=== PATIENT | female | born 2005 | race Hispanic/Latino ===

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

== ENCOUNTER 2025-02-03 23:06 | Emergency (ER) | payer SELFPAY ==
[2025-02-03 23:59] LABS: COVID-19 Antigen Negative (Negative)
[2025-02-04] MEDS: TYLENOL 1000 MG PO (01:30)
[2025-02-04] MEDS: TORADOL 30 MG IM (01:31)
[2025-02-04 01:41] LABS: HCG, Urine Qualitative Screen Negative
[2025-02-04 02:51] VITALS: BP 116/73
--- NOTE | 2025-02-04 03:36 | ED.GENMED ---
History of Present Illness
General
Chief Complaint: Cold/Flu/URI Symptoms
Source: patient
Exam Limitations: none
Time Seen by Provider: 02/04/25 01:01
Nursing documentation reviewed up to this point in time: agreed with
History of Present Illness
History of Present Illness:
20-year-old female presenting to the emergency department today with concerns of fever cough over the past few days. Some achiness and discomfort when coughing as well. No significant shortness of breath or persisting chest pain.
Review of Systems
Review of Systems
Allergies reviewed?: Yes
All Other Systems: ROS reviewed and negative except as documented in HPI and ROS
Phy Exam
Physical Exam
Physical Exam:
GENERAL: Alert , in no apparent distress
EYE: pupils equal and reactive
NECK: Supple, no significant adenopathy.
ENT: o/p clr, mmm.
CARDIAC: Regular rate and rhythm .
LUNGS: Clear breath sounds bilaterally, no acute respiratory distress, no wheezes/rales/rhonchi
ABDOMEN: Soft, without focal tenderness, no r/g, no cvat
NEUROLOGICAL: Alert and oriented, no focal neuro deficits
SKIN: Warm and dry, skin intact.
MUSCULOSKELETAL: No edema, well perfused.
PSYCH: Normal and appropriate interaction.
Sepsis
Sepsis Screening
Sepsis Assessment: Sepsis Ruled Out
Sepsis Screen
Sepsis Screen: Sepsis Ruled Out
Date: 02/04/25
Time: 03:41
Course
Orders/Labs/Results
Orders:
Orders
02/03/25 23:28
Influenza A+B Rapid Molecular Urgent
HERBER Source: Nasal Swab
Specimen Description:
02/03/25 23:29
COVID-19 Antigen Urgent
Source: Nasal Swab
02/04/25 01:02
Chest [CR Chest - 2 Views ] Urgent
Comment:
Reason For Exam: cough pain/fever
02/04/25 01:24
Acetaminophen [Tylenol] 1,000 mg PO NOW STA
Ketorolac [Toradol] 30 mg IM NOW STA
Test Result ONCE
02/04/25 01:29
Beta Hcg Urine Qualitative Screen [HCG, Urine Qualitative Screen] Urgent
Date Specimen was Collected: 02/04/25
Time Specimen was Collected: 01:26
02/04/25 03:33
Amoxicillin [Amoxil] 1,000 mg PO NOW STA
Azithromycin [Zithromax] 500 mg PO NOW STA
Vital Signs
Initial and Last Documented VS:
Initial Vital Signs
Pulse Pulse Ox
111 98
02/03/25 23:14 02/03/25 23:14
Last Documented Vital Signs
Temp Pulse Resp BP Pulse Ox
98.6 F 79 18 116/73 98
02/04/25 02:51 02/04/25 02:51 02/04/25 02:51 02/04/25 02:51 02/04/25 02:51
MDM/Problems Addressed
MDM/Problems Addressed:
20-year-old female presenting to the emergency department today with concerns of fever cough upper respiratory symptoms and now some achiness with coughing over the past few days. On arrival tachycardic but otherwise vital signs normal. Vital
signs improved after Motrin and Tylenol. Chest x-ray performed did show a potential patchy infiltrate to the lower lung lopez and the lateral view. Concerning this was started on antibiotics but otherwise stable for outpatient management return
precautions given.
*Critical Care Note
Total Time (30-74mins, 75-104mins- exclusive of procedures): Not Applicable
ED Attending Note
-
Portions of this chart may have been created with voice recognition software.� Occasional wrong word or��sound alike� substitutions may have occurred due to the inherent limitations of voice recognition software.
Discharge Plan
Departure
Patient Disposition: Home (Routine Discharge)
Date of Disposition: 02/04/25
Time of Disposition: 03:39
Patient with high blood pressure during this ER visit?: No
Condition: Good
Covid-19: Not Applicable
Discharge Problem:
Pneumonia
Instructions: Pneumonia in adults
Prescriptions:
New
azithromycin 500 mg tablet
500 mg PO DAILY 2 Days Qty: 2 0RF
amoxicillin 875 mg tablet
875 mg PO TID 7 Days Qty: 21 0RF
Referrals:
NONE,* [Family Provider] -
Activity Restrictions/Additional Instructions:
You came to the emergency department today with concerns of upper respiratory symptoms. You are found have a potential pneumonia. Please take the prescribed antibiotics. Please follow-up closely with a primary care doctor within 1 week. Return
for any worsening, new or concerning symptoms.
Interventions
Interventions:
*Risk Screen - Suicide Last Done: 02/03/25 23:14
*General Assessment Last Done: 02/03/25 23:14
*Neglect/Abuse Screening Last Done: 02/03/25 23:14
*ED- Fall Risk Assessment Last Done: 02/03/25 23:14
*ED COVID-19 Vaccine History Last Done: 02/03/25 23:14
ED- Pulmonary Assessment Last Done: 02/04/25 01:19
Discharge Date and Time
Print Language: DJIBOUTIAN
[2025-02-04] MEDS: AMOXIL 1000 MG PO (04:01)
[2025-02-04] MEDS: ZITHROMAX 500 MG PO (04:01)
== END 2025-02-04 04:07 | disposition home or self-care (01) ==
LOC: EMR 23:06
PROVIDERS: Physician Assistant; EMERGENCY PHYSICIAN Student in an Organized Health Care Education/Training Program
DX: J18.9 Pneumonia, unspecified organism (principal); Z11.52 Encounter for screening for COVID-19
CPT/HCPCS: 96372; 99284; 71046; 81025; 87502; 87811

== ENCOUNTER 2025-07-08 12:22 | Emergency (ER) | payer SELFPAY ==
[2025-07-08 12:29] VITALS: BP 126/86
--- NOTE | 2025-07-08 13:20 | ED.GENMED ---
History of Present Illness
General
Chief Complaint: Crisis Evaluation
Source: patient
Exam Limitations: none
Time Seen by Provider: 07/08/25 13:14
Nursing documentation reviewed up to this point in time: agreed with
History of Present Illness
History of Present Illness:
Patient is a 20-year-old female with history anxiety, depression, bipolar disorder who presents to the emergency department for crisis evaluation. Patient states that she was having a very emotional conversation with her mother earlier today when
she began feeling very lightheaded as if she may pass out. She states she very briefly lost consciousness. She apparently has experienced similar episodes during moments of intense stress in the past.
She states her mother gifted her a small house in [facility] however was sharing with her that she is going to allow her grandfather to live in the house which upset the patient.
She denies any SI or HI. She states she was off of her medications for a short period of time due to access/insurance problems - however has since restarted.
She is hoping ot speak to crisis and discuss outpatient resources. She feels safe at home.
Review of Systems
Review of Systems
Allergies reviewed?: Yes
All Other Systems: ROS reviewed and negative except as documented in HPI and ROS
Phy Exam
Physical Exam
Physical Exam:
Vitals: Patient's vital signs are stable. Afebrile.
General: Patient is very well appearing, no acute distress
Skin: Warm and dry, no rashes or lesions
Head: Normocephalic, atraumatic
Eyes: Sclera nonicteric. EOMs intact. No nystagmus.
Throat: Protecting airway
Neck: Normal ROM, no cervical spine tenderness, no meningismus
Cardiac: Regular rate and rhythm, no murmurs. 2+ palpable DP pulses bilaterally.
Pulm: Normal respiratory effort, no wheezes, rales, rhonchi heard on exam
Abdomen: No abdominal tenderness.
Extremities: No evidence of cyanosis or edema
Neuro: AAOx3. CN II-XII intact. No focal neurologic deficits.
Psychiatric: Normal affect. No SI or HI. Not responding to any internal stimuli on exam.
Course
Orders/Labs/Results
Orders:
Orders
07/08/25 12:38
1:1 Observation - Suicide/ Violent Behavior As Directed
Crisis Consult Urgent
Reason for Consult: SI
07/08/25 12:39
EKG [Electrocardiogram (*1)] Urgent
Reason for Study: Vertigo / Dizzy
EKG- Treatment ONCE
07/08/25 13:48
Basic Metabolic Panel Urgent
Complete Blood Count/With Diff Urgent
HCG, Serum Qualitative Screen Urgent
Comment: ADD ON
Urine Drug Abuse Screen Urgent
Date Specimen was Collected: 07/08/25
Time Specimen was Collected: 13:43
07/08/25 15:11
Add On- LAB Urgent
Tests Added?: serum hcg, qualitative
Abnormal Lab Results
07/08/25
13:48
Hgb 11.9 L g/dL
(12.0-16.0)
MCV 80.8 L fL
(81.0-99.0)
MCH 26.0 L pg
(27.0-31.0)
MCHC 32.2 L g/dL
(33.0-37.0)
Abs Immat Gran (auto) 0.1 H 10^3/uL
(0-0.05)
Immature Gran % 0.6 H %
(0-0.5)
Lymphocytes % 18.4 L %
(20.5-51.1)
Creatinine 0.5 L mg/dL
(0.6-1.0)
07/08/25 13:48
07/08/25 13:48
Vital Signs
Initial and Last Documented VS:
Initial Vital Signs
Temp Pulse Resp BP Pulse Ox
98.1 F 90 18 126/86 100
07/08/25 12:07/08/25 12:29 07/08/25 12:07/08/25 12:07/08/25 12:29
Last Documented Vital Signs
Temp Pulse Resp BP Pulse Ox
98.1 F 90 18 126/86 100
07/08/25 12:29 07/08/25 12:29 07/08/25 12:07/08/25 12:07/08/25 13:21
MDM/Problems Addressed
Differential Diagnosis Includes:
Not limited to: vasovagal syncope, acute dehydration, cardiac arrhythmia, suicidal ideation, depression, etc
MDM/Problems Addressed:
20-year-old female presents for crisis evaluation after experiencing emotional distress during a conversation with her mother, followed by a syncopal episode. No reported head injury or trauma. Denies preceding chest pain, shortness of breath,
headache, or neurological symptoms. No current suicidal or homicidal ideation reported.
Vitals are stable, and physical exam is unremarkable. Basic laboratory workup, including EKG, was normal with no evidence of arrhythmia or other acute pathology. Patient is hemodynamically stable and well-appearing.
She was evaluated by the crisis team, who concur that the patient does not meet criteria for inpatient psychiatric admission. She has consistently denied suicidal or homicidal ideation, and there is no evidence to suggest she is a danger to herself
or others at this time.
Syncope is most likely secondary to a vasovagal response triggered by emotional distress. No ongoing symptoms or concerns identified during ED evaluation.
Patient has an adequate supply of current medications and has been provided with outpatient mental health resources. She is stable for discharge with strict return precautions discussed, including recurrence of syncope, suicidal ideation, or
worsening mental health symptoms.
Chronic conditions affecting care:
Anxiety, depression, bipolar disorder
Acute Exacerbation and/or Progression of Chronic Illness:
N/A
*Pulse Oximetry
SaO2: 100
Oxygen Mode of Delivery: Room air
Patient hypoxic: no
*EKG
Interpreted by ED Provider?: Yes
EKG Intrepretation Date: 07/08/25
Interpretation: abnormal
Comparison EKG: no comparison EKG present
Heart Rate: 88
Rate: normal
Rhythm: sinus
[place]: normal axis
Interval: normal interval
QRS Pattern: normal QRS
Ischemia: no ischemia
*[employer] Interpretation
Rate: [employer] Tech- N/A
*Critical Care Note
Total Time (30-74mins, 75-104mins- exclusive of procedures): Not Applicable
ED Attending Note
-
Portions of this chart may have been created with voice recognition software.� Occasional wrong word or��sound alike� substitutions may have occurred due to the inherent limitations of voice recognition software.
Discharge Plan
Departure
Patient Disposition: Home (Routine Discharge)
Date of Disposition: 07/08/25
Time of Disposition: 15:08
Patient with high blood pressure during this ER visit?: Yes
Condition: Good
Discharge Problem:
Syncope, Emotional distress
Instructions: Depression, Adult (DC), Syncope (fainting) (DC), BLOOD PRESSURE
Prescriptions:
No Action
azithromycin 500 mg tablet
500 mg PO DAILY 2 Days Qty: 2 0RF
amoxicillin 875 mg tablet
875 mg PO TID 7 Days Qty: 21 0RF
Referrals:
[facility] [[facility] - Next open appointment
Activity Restrictions/Additional Instructions:
Regrese a urgencias si presenta dolor tor�cico, dificultad para respirar, mareos/aturdimiento persistentes, episodios de desmayo, pensamientos de hacerse da�o a s� mismo o a otros, cualquier inquietud relacionada con petty seguridad, empeoramiento de
los s�ntomas actuales o cualquier otra inquietud.
- [place] se mencion�, sky an�lisis de laboratorio de hoy no mostraron anomal�as agudas. Sospecho que petty episodio de desmayo probablemente se parrish� a tejinder respuesta vasovagal secundaria a angustia emocional.
- Contin�e tomando todos sky medicamentos seg�n lo prescrito.
- Consulte con petty m�dico de cabecera y petty psiquiatra para tejinder evaluaci�n/tratamiento adicional y asegurar tejinder mejor�a de sky s�ntomas.
Visite urgencias para detectar cualquier empeoramiento tigist, nuevos s�ntomas o cualquier otra inquietud.
Interventions
Interventions:
*Risk Screen - Suicide Last Done: 07/08/25 12:29
*General Assessment Last Done: 07/08/25 12:29
*ED COVID-19 Vaccine History Last Done: 07/08/25 12:29
*ED Influenza Vaccine History Last Done: 07/08/25 12:29
*Nursing Disposition Last Done: 07/08/25 15:18
Discharge Date and Time
Discharge Date/Time: 07/08/25 15:18
Print Language: [place]
[2025-07-08 14:01] LABS: Hematocrit 37.0 % (37.0-47.0); Hemoglobin 11.9 g/dL (12.0-16.0); Mean Corp Hgb Conc. 32.2 g/dL (33.0-37.0); Mean Corpuscular Volume 80.8 fL (81.0-99.0); Nucleated Red Blood Cells % 0 %; Platelet Count 262 10^3/uL (130-400); Red Cell Dist. Width 14.1 % (11.5-14.5)
[2025-07-08 14:23] LABS: Blood Urea Nitrogen 10 mg/dl (7-17); Calcium 9.7 mg/dl (8.4-10.2); Carbon Dioxide 27 mmol/L (22-30); Chloride 103 mmol/L (98-107); Glucose 89 mg/dl (70-99); Potassium 4.2 mmol/L (3.5-5.1); Sodium 138 mmol/L (135-145); eGFR > 60.00
[2025-07-08 16:21] LABS: HCG, Serum Qualitative Screen Negative
== END 2025-07-08 15:18 | disposition home or self-care (01) ==
LOC: EMR 12:22
PROVIDERS: Physician Assistant; EMERGENCY PHYSICIAN Emergency Medicine
DX: R55 Syncope and collapse (principal); Z62.820 Parent-biological child conflict; F31.9 Bipolar disorder, unspecified
CPT/HCPCS: 99283; 80048; 80306; 84703; 85025; 93005